=== PATIENT | male | born 1975 | race African-American/Black ===

== ENCOUNTER 2024-06-08 07:30 | Inpatient (IN) | payer MEDICAID ==
[2024-06-08] VITALS (30 sets, daily range): BP systolic 0–78; BP diastolic 0–56; PULSE 0–122; RESP 0–34; TEMP 35–35.3; O2SAT 86
[~2024-06-08] VITALS: Ht 172.7 cm; Wt 86.6 kg
[2024-06-08] MEDS ORDERED: MAGNESIUM 1 G PREMIX 100 ML IV ONE ×2 (07:54→08:08)
[2024-06-08] MEDS ORDERED: CALCIUM GLUCONATE 1GM PREMIX 50 ML IV ONE (08:00)
[2024-06-08] MEDS ORDERED: MAGNESIUM 4 G PREMIX 100 ML IV ONE (08:00)
[2024-06-08] MEDS ORDERED: NOREPINEPHRINE 8MG/250ML PMX 250 ML IV ONE ×3 (08:13→10:08)
[2024-06-08] MEDS ORDERED: MIDAZOLAM 100MG/100ML PMX 100 ML IV PRN (08:15)
[2024-06-08 08:34] LABS: CHLORIDE 100 mEq/L (98-107); POTASSIUM 5.2 mEq/L (3.5-5.1)
[2024-06-08 08:40] LABS: ETHANOL BLOOD < 10 mg/dL (<10); GLUCOSE 276 mg/dL (70-105); TROPONIN I HIGH SENSITIVITY 53 ng/L (3.0-53)
[2024-06-08 08:41] LABS: ACETAMINOPHEN < 2 ug/mL (10-30); ALANINE AMINOTRANSFERASE 181 IU/L (10-49); ALBUMIN 2.9 g/dL (3.2-4.8); AMMONIA 40 uMol/L (<32); ASPARTATE AMINOTRANSFERASE 391 IU/L (<34)
[2024-06-08 08:42] LABS: BILIRUBIN DIRECT < 0.1 mg/dL (<=3.0); BILIRUBIN TOTAL 0.2 mg/dL (0.1-1.0); PROTEIN TOTAL 5.4 g/dL (6.0-8.3)
[2024-06-08 08:49] LABS: BASOPHILS % 0.1 % (0.0-2.0); DIFFERENTIAL COMMENT 0; EOSINOPHILS % 0.2 % (0.0-5.0); HEMATOCRIT. 41.2 % (42.0-52.0); HEMOGLOBIN. 12.7 g/dL (14.0-18.0); LYMPHOCYTES % 13.6 % (20.0-50.0); MEAN CORPUSCULAR HEMOGLOBIN 28.8 pg (28.0-32.0); MEAN CORPUSCULAR HGB CONC 30.7 g/dL (31.0-37.0); MEAN CORPUSCULAR VOLUME 93.6 fL (80.0-94.0); MEAN PLATELET VOLUME 10.4 fl (7.4-10.4); MONOCYTES % 5.9 % (2.0-8.0); NEUTROPHILS % 80.2 % (40.0-76.0); PLATELET 131 x1000/uL (130-400); RED BLOOD CELL COUNT 4.41 mill/uL (4.7-6.1); RED CELL DISTRIBUTION WIDTH 13.3 % (11.6-14.6); WHITE BLOOD COUNT 8.8 x1000/uL (4.5-11.0)
[2024-06-08 08:51] LABS: CARBON DIOXIDE < 10 mEq/L (21-32); SODIUM 116 mEq/L (136-145); UREA NITROGEN BLOOD 127 mg/dL (9-23)
[2024-06-08 08:52] LABS: CALCIUM > 32.0 mg/dL (8.7-10.4); CREATININE 10.4 mg/dL (0.6-1.3)
[2024-06-08] MEDS ORDERED: SODIUM CHLORIDE 0.9% 1,000 ML IV NR (09:00)
[2024-06-08] MEDS ORDERED: ALBUTEROL (0.083%) 2.5MG/3ML NEB HHN SCH (09:30)
[2024-06-08] MEDS ORDERED: DEXTROSE 50% WATER 50ML SYRINGE IV NR (09:30)
[2024-06-08 09:47] LABS: BG BASE EXCESS -27.5 mmol/L (-2.0-3.0); BG CARBOXYHEMOGLOBIN 0.6 % (0.5-1.5); BG DEOXYHEMOGLOBIN 26.3 % (0.0-5.0); BG FRACTION INSPIRED OXYGEN 100; BG HCO3 ACT 8.8 mmol/L (21.0-28.0); BG METHEMOGLOBIN 0.1 % (0.5-1.5); BG OXYGEN SATURATION 73.5 % (94.0-98.0); BG PCO2 65.6 mmHg (35.0-48.0); BG PH 6.745 (7.350-7.450); BG PO2 62.7 mmHg (83.0-108.0); BG SAMPLE SITE RIGHT RADIAL; BG TOTAL RESPIRATORY RATE 26 b/min; BG VENT MODE VENT - AC
[2024-06-08] MEDS ORDERED: IPRATROPIUM/ALBUTEROL 0.5-3(2.5)MG/3ML NEB HHN PRN (10:30)
[2024-06-08] MEDS ORDERED: GUAIFENESIN 200MG/10ML SUGAR FREE UDC PO PRN (10:30)
[2024-06-08] MEDS ORDERED: ACETAMINOPHEN 325MG TABLET PO PRN ×2 (10:30)
[2024-06-08] MEDS ORDERED: DOCUSATE SODIUM 100MG CAPSULE PO PRN (10:30)
[2024-06-08] MEDS ORDERED: LORAZEPAM 0.5MG TABLET PO PRN (10:30)
[2024-06-08] MEDS ORDERED: ONDANSETRON HCL 4MG/2ML INJ IV PRN (10:30)
[2024-06-08] MEDS ORDERED: CLONIDINE 0.1MG TABLET PO PRN (10:30)
[2024-06-08] MEDS ORDERED: DEXT 5%/0.9% NACL 1,000 ML IV SCH (11:00)
[2024-06-08] MEDS ORDERED: MAGNESIUM 4 G PREMIX 100 ML IV NR (11:00)
[2024-06-08] MEDS: PHENYLEPHRINE 50MG/250ML PMX IV PRN (11:09)
[2024-06-08] MEDS: EPINEPHRINE 10 MG in SODIUM CHLORIDE 0.9% 250 ML IV PRN (11:11)
[2024-06-08] MEDS: INSULIN REGULAR (HUMULIN R) 1000UNITS/10ML VIAL IV NR (11:13)
[2024-06-08] MEDS ORDERED: DEXTROSE 50% WATER 50ML SYRINGE IV PRN (11:30)
[2024-06-08] MEDS ORDERED: PIPERACILLIN/TAZO 3.375G/50ML 50 ML IV SCH (11:30)
[2024-06-08 11:35] LABS: CREATINE KINASE 31206 IU/L (46-171)
[2024-06-08] MEDS: OCTREOTIDE ACETATE 50 MCG/ML 1ML IV NR (11:49)
[2024-06-08] MEDS: VASOPRESSIN 20 UNIT in SODIUM CHLORIDE 0.9% 99 ML IV PRN (11:50)
[2024-06-08] MEDS ORDERED: INSULIN LISPRO 100 UNITS/ML SUBCUT SCH (12:00)
[2024-06-08] MEDS ORDERED: OCTREOTIDE 1,000 MCG in SODIUM CHLORIDE 0.9% 98 ML IV SCH (12:00)
[2024-06-08] MEDS ORDERED: PANTOPRAZOLE 80 MG in SODIUM CHLORIDE 0.9% 100 ML IV SCH (12:00)
[2024-06-08] MEDS ORDERED: BLOOD SUGAR DIAGNOSTIC STRIP TEST SCH (12:00)
[2024-06-08] MEDS ORDERED: SODIUM CHLORIDE 0.9% 1,000 ML IV SCH (12:00)
[2024-06-08] MEDS: NOREPINEPHRINE 32 MG in DEXT 5% WATER 218 ML IV PRN (12:04)
[2024-06-08] MEDS: PHENYLEPHRINE 100 MG in DEXT 5% WATER 240 ML IV PRN (12:05)
[2024-06-08] MEDS: DOPAMINE 400MG/250ML PREMIX 250 ML IV PRN (12:13)
[2024-06-08 12:36] LABS: HEMATOCRIT. 39.6 % (42.0-52.0); HEMOGLOBIN. 12.7 g/dL (14.0-18.0); MEAN CORPUSCULAR HEMOGLOBIN 29.1 pg (28.0-32.0); MEAN CORPUSCULAR VOLUME 90.7 fL (80.0-94.0); MEAN PLATELET VOLUME 9.8 fl (7.4-10.4); PLATELET 86 x1000/uL (130-400); RED BLOOD CELL COUNT 4.36 mill/uL (4.7-6.1); RED CELL DISTRIBUTION WIDTH 12.8 % (11.6-14.6); WHITE BLOOD COUNT 7.9 x1000/uL (4.5-11.0)
[2024-06-08 12:47] LABS: CHLORIDE 82 mEq/L (98-107)
[2024-06-08 12:53] LABS: GLUCOSE 137 mg/dL (70-105)
[2024-06-08 12:55] LABS: ALBUMIN 2.6 g/dL (3.2-4.8); BILIRUBIN TOTAL 0.5 mg/dL (0.1-1.0); PROTEIN TOTAL 4.9 g/dL (6.0-8.3)
[2024-06-08] MEDS ORDERED: VANCOMYCIN 1.5GM/250ML IV NR (13:00)
[2024-06-08 13:07] LABS: HEPATITIS B SURFACE ANTIGEN NEGATIVE (Negative)
[2024-06-08 13:09] LABS: DIFFERENTIAL COMMENT 1; SODIUM 122 mEq/L (136-145)
[2024-06-08 13:11] LABS: CALCIUM 8.8 mg/dL (8.7-10.4)
[2024-06-08 13:12] LABS: LACTIC ACID 12.4 mmol/L (0.4-2.0)
[2024-06-08 13:13] LABS: CARBON DIOXIDE < 10 mEq/L (21-32); POTASSIUM 8.1 mEq/L (3.5-5.1); UREA NITROGEN BLOOD > 150 mg/dL (9-23)
[2024-06-08 13:14] LABS: CREATININE 12.8 mg/dL (0.6-1.3)
[2024-06-08 13:27] LABS: HEPATITIS A AB IGM NEGATIVE (Negative)
[2024-06-08 13:28] LABS: HEPATITIS B CORE AB IGM NEGATIVE (Negative); HEPATITIS C AB NON REACTIVE (Neg) (Negative)
[2024-06-08] MEDS ORDERED: HYDROCORTISONE SOD SUCCINATE 100 MG/2 ML VIAL IV SCH (14:00)
[2024-06-08 14:12] LABS: ALANINE AMINOTRANSFERASE 1337 IU/L (10-49); ASPARTATE AMINOTRANSFERASE 1448 IU/L (<34)
[2024-06-08 14:14] LABS: PHOSPHORUS 24.2 mg/dL (2.5-4.9)
[2024-06-08 14:53] LABS: GIANT PLATELETS FEW; PLATELET ESTIMATE MARKEDLY DECREASED
[2024-06-08] MEDS ORDERED: EPINEPHRINE 20 MG in SODIUM CHLORIDE 0.9% 480 ML IV PRN (15:00)
[2024-06-09] MEDS ORDERED: NOREPINEPHRINE 8MG/250ML PMX 250 ML IV ONE ×3 (10:15)
[2024-06-09] MEDS ORDERED: MAGNESIUM 1 G PREMIX 100 ML IV ONE ×2 (10:15)
== END 2024-06-08 12:53 | DRG 720 ==
LOC: ER 07:30 → MICUSO 08:44 → EDBEDREQTM 08:46 → EDBEDREQ 08:46
PROVIDERS: ADMIT Hospitalist; ATTEND Hospitalist
PROC: 0BH17EZ Insertion of Endotracheal Airway into Trachea, Via Natural or Artificial Opening (ICD-10-PCS; principal; 2024-06-08)
PROC: 5A12012 Performance of Cardiac Output, Single, Manual (ICD-10-PCS; 2024-06-08)
PROC: 5A1935Z Respiratory Ventilation, Less than 24 Consecutive Hours (ICD-10-PCS; 2024-06-08)
PROC: 04HY32Z Insertion of Monitoring Device into Lower Artery, Percutaneous Approach (ICD-10-PCS; 2024-06-08)
PROC: 06HY33Z Insertion of Infusion Device into Lower Vein, Percutaneous Approach (ICD-10-PCS; 2024-06-08)
PROC: B54CZZA Ultrasonography of Left Lower Extremity Veins, Guidance (ICD-10-PCS; 2024-06-08)
DX: A41.9 Sepsis, unspecified organism (principal); I46.9 Cardiac arrest, cause unspecified; J96.01 Acute respiratory failure with hypoxia; K72.00 Acute and subacute hepatic failure without coma; G92.8 Other toxic encephalopathy; K92.2 Gastrointestinal hemorrhage, unspecified; R65.21 Severe sepsis with septic shock; N17.0 Acute kidney failure with tubular necrosis; E87.1 Hypo-osmolality and hyponatremia; E83.52 Hypercalcemia; E87.5 Hyperkalemia; F10.229 Alcohol dependence with intoxication, unspecified; J96.02 Acute respiratory failure with hypercapnia; Y90.9 Presence of alcohol in blood, level not specified; M62.82 Rhabdomyolysis; F20.9 Schizophrenia, unspecified; F41.9 Anxiety disorder, unspecified; R74.01 Elevation of levels of liver transaminase levels; I47.20 Ventricular tachycardia, unspecified; K70.9 Alcoholic liver disease, unspecified; E83.39 Other disorders of phosphorus metabolism; E83.41 Hypermagnesemia; D64.9 Anemia, unspecified; D69.6 Thrombocytopenia, unspecified
CPT/HCPCS: 31500; 36415; 36600; 71045; 80048; 80053; 80076; 80307; 80320; 80329; 82140; 82375; 82550; 82805; 82962; 83036; 83605; 83735; 84100; 84145; 84484; 85025; 86705; 86709; 86850; 86900; 87340; 92950; 94002; 94070; 94664; 99291; A4606; J1265; J1815; J2354; J2470; J3370; J3475; J3490; J7030; J7040; J7050; J7060; G0480